=== PATIENT | male | born 1990 | race Caucasian/White ===

== ENCOUNTER 2017-04-08 11:49 | Emergency (ER) | payer OTHER, MEDICAID ==
[~2017-04-08] VITALS: Ht 193 cm; Wt 99.8 kg
[~2017-04-08 11:49] MED LIST: MUCINEX TA600 MG/TA2 PO; NORCO 5-325 TA1 EACH PO; NYQUIL D COLD295 ML PO; PAXIL10 MG; ULTRAM 50MG TAB50 MG PO; ZOFRAN ODT4 MG PO; ZPAK PO
[2017-04-08] MEDS ORDERED: TRAMADOL 50 MG50 MG PO (13:09)
[2017-04-08] MEDS ORDERED: IBUPROFEN 800800 M1 PO (13:09)
[2017-04-08 13:22] VITALS: BP 128/76
[2017-12-30] MEDS ORDERED: NORCO 5-325 TA1 EACH PO (12:31)
[2017-12-30] MEDS ORDERED: IBUPROFEN 800800 M1 PO (12:31)
== END 2017-04-08 13:47 | disposition home or self-care (01) ==
LOC: M.ERS 11:49
DX: M25.511 Pain in right shoulder (principal); J45.909 Unspecified asthma, uncomplicated; F17.210 Nicotine dependence, cigarettes, uncomplicated; Z91.013 Allergy to seafood

== ENCOUNTER 2017-12-23 09:10 | Emergency (ER) | payer OTHER, MEDICAID ==
[~2017-12-23] VITALS: Ht 193 cm; Wt 99.8 kg
[~2017-12-23 09:10] MED LIST changes: +IBUPROFEN 800800 M1 PO; +TRAMADOL 50 MG50 MG PO
[2017-12-23] MEDS ORDERED: NORCO 5-325 TA1 EACH PO (09:40)
[2017-12-23] MEDS ORDERED: FLEXERIL PO (09:40)
[2017-12-23 09:53] VITALS: BP 126/80
[2017-12-30] MEDS ORDERED: NORCO 5-325 TA1 EACH PO (12:31)
[2017-12-30] MEDS ORDERED: IBUPROFEN 800800 M1 PO (12:31)
== END 2017-12-23 09:54 | disposition home or self-care (01) ==
LOC: M.ERS 09:10
DX: S16.1XXA Strain of muscle, fascia and tendon at neck level, initial encounter (principal); M25.511 Pain in right shoulder; F17.210 Nicotine dependence, cigarettes, uncomplicated; Z91.030 Bee allergy status

== ENCOUNTER → 2017-12-30 | Emergency (ER) | payer OTHER, MEDICAID ==
[~2017-12-30] VITALS: Ht 182.9 cm; Wt 99.8 kg
[~2017-12-30] MED LIST changes: +FLEXERIL PO
[2017-12-30 12:47] VITALS: BP 113/74
== END ==
LOC: M.ERS 11:43
DX: M25.511 Pain in right shoulder (principal); J45.909 Unspecified asthma, uncomplicated; F17.210 Nicotine dependence, cigarettes, uncomplicated; Z91.030 Bee allergy status